=== PATIENT | female | born 1945 | race Caucasian/White ===

== ENCOUNTER 2020-08-21 10:45 | Outpatient (NON) | payer MEDICARE, SELFPAY ==
[2020-08-21 11:29] LABS: Anion Gap 13 mmol/L (8-16); Blood Urea Nitrogen 11 mg/dL (7-18); Calcium 8.4 mg/dL (8.5-10.1); Carbon Dioxide 24 mmol/L (21-32); Chloride 105 mmol/L (98-108); Estimated Glomerular Filt Rate 52; Glucose 91 mg/dL (70-99); Osmolality Calculated 293 mOsm/kg (285-295); Potassium 3.7 mmol/L (3.5-5.1); Sodium 142 mmol/L (136-145); Vancomycin Trough 13.6 ug/mL (10.0-15.0)
== END 2020-08-21 10:46 | disposition home or self-care (01) ==
LOC: CHSLAB 10:52
PROVIDERS: Visit Provider Orthopaedic Surgery
DX: T84.50XD Infection and inflammatory reaction due to unspecified internal joint prosthesis, subsequent encounter (principal)
CPT/HCPCS: 36415; 80048; 80202